=== PATIENT | female | born 1960 | race Hispanic/Latino ===

== ENCOUNTER 2017-09-18 12:52 | Outpatient (CLI) | payer OTHER ==
--- NOTE | 2017-09-18 15:05 | MRI ---
LUMBAR SPINE MRI WITHOUT CONTRAST: History: Lumbar radiculopathy, low back pain radiating down the left leg. Patient lifted a heavy obje ct in August 2017 which triggered the pain. Comparison: None. Technique: Lumbar spine MRI is performed without intravenous gadolinium administration. Multisequenti al, multiplanar imaging is performed. FINDINGS: There is appropriate T1 marrow signal intensity of the lumbar vertebrae. Lumbar spine vertebral body height is maintained. There is no fracture. No significant STIR hyperintensity to suggest vertebral b toby edema or ligamentous injury. Appropriate signal intensity of the psoas muscles and visualized retroperitoneal structures. Conus medullaris terminates at the mid L1 level. The overall AP diameter of the central spinal canal is decreased due to congenitally foreshortened pe dicles. T12-L1: Adequate disc hydration. No significant central canal stenosis or foraminal narrowing. L1-2: Adequate disc hydration. No significant disc abnormality. Mild ligamentum flavum thickening as well as facet hypertrophy. No significant spinal canal stenosis. Mild bilateral neural foraminal narr owing. L2-3: Desiccation with mild loss of disc space height. There is a broad based anterior as well as bro ad based posterior disc bulge. Ligamentum flavum thickening and facet hypertrophy are present. There is mild stenosis of the thecal sac. Neural foramina are patent bilaterally. L3-4: Disc desiccation without significant loss of disc space height. Generalized disc bulge with a l eft paracentral component is noted. There is a small inferior disc extrusion in the left subarticular zone. Ligamentous flavum thickening and facet hypertrophy are identified. There is moderate central canal stenosis. Moderate bilateral foraminal narrowing. L4-5: Adequate disc hydration. No significant disc abnormality. There is ligamentum flavum thickening and facet hypertrophy that results in mild central canal stenosis. There is narrowing of both subar ticular zones. There is disc material and posterior facet hypertrophy. Partial obscuration of bilater al traversing L5 nerve root. Moderate bilateral foraminal narrowing. L5-S1: Adequate disc hydration. No significant frontal canal stenosis. Neural foramina are patent. IMPRESSION: Degenerative changes of the lumbar spine as detailed above. POS: [facility]
== END 2017-09-18 12:53 | disposition home or self-care (01) ==
LOC: TBSIIMAG 12:52
PROVIDERS: ATTEND Neurological Surgery
DX: M47.26 Other spondylosis with radiculopathy, lumbar region (principal)
CPT/HCPCS: 72148

== ENCOUNTER 2017-09-23 08:54 | Day surgery (SDC) | payer OTHER ==
[2017-09-23] MEDS ORDERED: CEFAZOLIN/Water 2 GM/20 ML SYRINGE ONE (10:47)
[2017-09-23 11:13] LABS: #Lymphocytes 1.9 thou/uL (1.20-3.40); #Monocytes 0.5 thou/uL (0.11-0.59); #Neutrophils 5.9 thou/uL (1.40-6.50); %Basophils 0.3 % (0.0-1.0); %Eosinophils 0.5 % (0.0-10.0); %Lymphocytes 22.6 % (21.0-51.0); %Monocytes 6.3 % (0.0-10.0); %Neutrophils 70.3 % (42.0-75.0); Hemoglobin 11.8 g/dL (12.0-16.0); Mean Corpuscular HGB CONC 32.8 g/dL (32.0-36.0); Mean Corpuscular Hemoglobin 27.1 pg (27.0-31.0); Mean Corpuscular Volume 82.5 fl (81.0-99.0); Mean Platelet Volume 8.5 fL (7.4-10.4); Platelet Count 283 thou/uL (130-400); RBC Distribution Width 13.2 % (11.5-14.5); Red Blood Cell (RBC) Count 4.35 mill/uL (4.20-5.40); White Blood Cell (WBC) Count 8.4 thou/uL (4.8-10.8)
[2017-09-23 11:32] LABS: Anion Gap 15 mmol/L (10-20); BUN (Urea Nitrogen) 15 mg/dL (9.8-20.1); Calc. Creatinine Clearance 101 mL/min (70-130); Calcium 9.8 mg/dL (7.8-10.44); Carbon Dioxide 25 mmol/L (22-29); Chloride 102 mmol/L (98-107); Estimated GFR-MDRD 80; Glucose 94 mg/dL (70-105); Potassium 3.8 mmol/L (3.5-5.1); Sodium 138 mmol/L (136-145)
[2017-09-23] MEDS ORDERED: Ondansetron HCl/PF 4 MG/2 ML Vial ONE (12:20)
[2017-09-23] MEDS ORDERED: Glycopyrrolate 0.2 MG/ML 5 ML SYRINGE ONE (12:20)
[2017-09-23] MEDS ORDERED: Propofol 200 MG/20 ML VIAL ONE (12:20)
[2017-09-23] MEDS ORDERED: Lidocaine 1% PF 5 ML VIAL ONE (12:20)
[2017-09-23] MEDS ORDERED: Dexamethasone 20 MG/5 ML VIAL ONE (12:20)
[2017-09-23] MEDS ORDERED: ePHEDrine/0.9% NaCl/PF SYRINGE 50 mg/10 ml ONE (12:20)
[2017-09-23] MEDS ORDERED: HYDROmorphone 0.5 MG/0.5 ML SYRINGE ONE ×2 (13:33→17:02)
[2017-09-23] MEDS ORDERED: Fentanyl 100 MCG/2 ML VIAL ONE ×3 (13:33→15:28)
[2017-09-23] MEDS ORDERED: Promethazine HCl 25 MG/ML VIAL ONE ×2 (16:13→16:58)
--- NOTE | 2017-09-23 16:27 | OP ---
DATE OF PROCEDURE: 09/23/2017 SURGEON: Jan Sprague M.D. TRANSLATION DIRECTOR: Airam Vega PA-C PROCEDURE: L3-L4 laminectomy, left L3-L4 discectomy. PROCEDURE IN DETAIL: The patient was brought into the operating room, intubated. She was rolled in the prone position on gel-filled chest rolls. Incision made exposing L3 and L4 bilaterally and our l evel was confirmed by x-ray. We performed complete L4 and inferior L3 laminectomies, completely deco mpressing the central spinal canal and then turned our attention to the left L3-L4 region where an ad ditional lateral recess decompression was accomplished. The left L3-L4 disk was exposed, incised and debrided. A lateral component of disk was removed as well as lateral recess component. A complete decompression of the neural elements was achieved. The wound was extensively irrigated, immaculate h emostasis was secured. Vancomycin powder was applied and the wound was closed in anatomic layers.
[2017-09-23] MEDS ORDERED: HYDROcodone/Acetaminophen 5/325 mg Tablet ONE (16:50)
[2017-09-23] MEDS ORDERED: tiZANidine HCl 4 MG TAB ONE (16:50)
[2017-09-23 21:25] VITALS: BMI 28.6
[2017-09-23] MEDS ORDERED: HYDROcodone/Acetaminophen 10/325 mg Tablet PO PRN ×2 (22:08)
[2017-09-23] MEDS ORDERED: Milk Of Magnesia 30 ML UDCUP PO PRN (22:08)
[2017-09-23] MEDS ORDERED: Promethazine HCl 12.5 MG SUPP PR PRN (22:08)
[2017-09-23] MEDS ORDERED: traMADol HCl 50 MG TAB PO PRN ×2 (22:08)
[2017-09-23] MEDS ORDERED: Ondansetron HCl/PF 4 MG/2 ML Vial IM PRN (22:08)
[2017-09-23] MEDS ORDERED: Mag-Al 1200 mg/1200 mg/30 ML UDCUP PO PRN (22:08)
[2017-09-23] MEDS ORDERED: Sodium Chloride 0.9% 1,000 ML IV SCH (22:08)
[2017-09-23] MEDS ORDERED: Promethazine 25 MG TAB PO PRN (22:08)
[2017-09-23] MEDS ORDERED: Promethazine HCl 25 MG/ML VIAL IM PRN (22:08)
[2017-09-23] MEDS ORDERED: diphenhydrAMINE 25 MG CAP PO PRN (22:08)
[2017-09-23] MEDS ORDERED: Morphine 4 MG/ML Carpuject SLOW IVP PRN (22:08)
[2017-09-23] MEDS ORDERED: diphenhydrAMINE 50 MG/ML VIAL IVP PRN (22:08)
[2017-09-23] MEDS ORDERED: Morphine 5 MG/ML SYRINGE SLOW IVP PRN ×2 (22:14)
[2017-09-24] MEDS: tiZANidine HCl 4 MG TAB PO PRN ×2 (01:21→08:09)
[2017-09-24 08:26] VITALS: BP 112/68; TEMP 98
== END 2017-09-24 10:45 | disposition home or self-care (01) ==
LOC: SDC 08:54 → T4-A 21:21 → UNDOADMOB 21:21 → T4-A 21:21 → SDC 09-24 10:45 → UNDODISOB 09-24 10:45
PROVIDERS: ATTEND Neurological Surgery
PROC: 0ST20ZZ Resection of Lumbar Vertebral Disc, Open Approach (ICD-10-PCS; principal; 2017-09-24)
PROC: 01NB0ZZ Release Lumbar Nerve, Open Approach (ICD-10-PCS; principal; 2017-09-24)
DX: M48.061 Spinal stenosis, lumbar region without neurogenic claudication (principal); M54.16 Radiculopathy, lumbar region; Z79.899 Other long term (current) drug therapy; Z90.710 Acquired absence of both cervix and uterus; Z98.84 Bariatric surgery status; Z98.890 Other specified postprocedural states
CPT/HCPCS: 36415; 76001; 80048; 85025; 93005; 93010; 96374; 96375; J1100; J1170; J2001; J2270; J2405; J2550; J2704; J3010; J3370

== ENCOUNTER 2017-09-27 13:46 | Emergency (ER) | payer OTHER ==
[2017-09-27] MEDS ORDERED: Fentanyl 100 MCG/2 ML VIAL ONE (14:26)
[2017-09-27] MEDS ORDERED: Ketorolac Tromethamine 30 MG/ML VIAL ONE (17:28)
[2017-09-27] MEDS ORDERED: diphenhydrAMINE 50 MG/ML VIAL ONE (17:28)
[2017-09-27] MEDS ORDERED: Acetaminophen 500 MG TAB ONE (17:28)
[2017-09-27] MEDS ORDERED: Metoclopramide HCl 10 MG/2 ML VIAL ONE (17:28)
--- NOTE | 2017-09-27 17:45 | CON ---
ER CONSULTATION NOTE DATE OF CONSULTATION: 09/27/2017 HISTORY OF PRESENT ILLNESS: Ms. Ordoñez is a 56-year-old woman who is now postop day #4 following a zachery mbar laminectomy and diskectomy with Dr. Sprague on Saturday this week. She presents to the Emergency Department via transfer from [place] for severe headache that began yesterday morning and has pers isted through today. She does have a history of migraines and tried prescription abortive medication s for this purpose and was unsuccessful in treating it at bedside. Initially, she had her daughter a nd corroborates the story that her headaches seem to be unaffected by position, which to me e liminates the possibility of spinal fluid headache; however, when I go back in and reassess her after a few minutes, she then changes her stories some stating that she cannot sit up and it hurts her hea d more to sit up and when she lays down, it still hurts, but it does not hurt as bad. I do not know if this necessarily qualifies as a definitive spinal fluid headache or not, but based off of CT scan and incision inspection, I do not believe that this is infectious in process by any means. She has a normal white count. On exam, she has good motor strength in the bilateral lower extremities. She i s able to transition and transfer in the bed and roll on her side with ease. Her incision, she has s ome mild ecchymosis around the incision site, which is to be expected after this type of surgery, par ticularly with in this time frame. There is very mild bloody drainage from superior to the incision that has left a small spot on the bandage that placed, drainage from the incision, and they stated th at this first day postoperatively, on Saturday, she did have a fair amount of serosanguineous drainage from the incision, which I believe is very typical for this and it has tapered off profoundly since that time and she now has just left with some mild bloody drainage from time to time. Treatment in [facility] is focused on fluids. She did get a back to vancomycin which again, I think we can stop. I do not believe that she is toxic or that the CT scan of the lumbar spine represented abscess as opposed to just normal postoperative changes this early out from a lumbar laminectomy. Oswaldo alcantar does have some mild photophobia as well and has very mild signs of potential meningismus, which she feels like is abnormal for her. She is able to touch her chin to her chest. She does feels "tensio n" in the base of her neck. This certainly could just be related to muscle tension from her headache . From a neurosurgical perspective, I do not believe that this is related to her surgery, but it is hard to say that it is not given the possibility of even a small spinal fluid leak, though there was no intraoperative dural tear noted in the surgery note from Saturday. At the moment, we will treat thi s as possible refractory migraine. If all efforts continue to fail, then we will plan to place her o n observation status upstairs and start to treat this like a possible low pressure spinal fluid heada danika, meaning keeping her head of bed flat at all times on bed rest with high flow normal saline. I dedra brooks explained to them the possibilities of additional treatments for dural tear if we reach a working diagnosis of that, which included potential placement of lumbar drain or blood patch. They are unde rstanding of this, but first we will proceed with treatment of potential migraine and go from there.
[2017-09-27] MEDS ORDERED: methylPREDNISolone Sod Succ/PF 125 MG/2 ML VIAL ONE (18:39)
[2017-09-27] MEDS ORDERED: Magnesium Sulfate 2 GM/100 ML BAG ONE (18:39)
[2017-09-27] MEDS ORDERED: Bisacodyl 10 MG SUPP PR PRN (19:39)
[2017-09-27] MEDS ORDERED: diphenhydrAMINE 50 MG/ML VIAL IVP PRN (19:39)
[2017-09-27] MEDS ORDERED: Ondansetron PF 4 MG/2 ML Vial IVP PRN (19:39)
[2017-09-27] MEDS ORDERED: Cyclobenzaprine 10 MG TAB PO PRN (19:39)
[2017-09-27] MEDS ORDERED: Sodium Chloride 0.9% 1,000 ML IV SCH (19:45)
[2017-09-27] MEDS ORDERED: Fioricet 325/50/40 mg Tablet PO PRN (19:47)
== END 2017-09-27 20:10 | disposition home or self-care (01) ==
LOC: ERS 13:46
DX: T81.4XXA Infection following a procedure, initial encounter (principal); R51 Headache
CPT/HCPCS: 96361; 96365; 96367; 96375; J1200; J1885; J2765; J2930; J3010; J3370; J3475

== ENCOUNTER 2018-06-02 14:17 | Outpatient (CLI) | payer OTHER ==
--- NOTE | 2018-06-02 18:06 | MRI ---
MRI RIGHT SHOULDER WITHOUT CONTRAST: Date: 06/02/18 HISTORY: Rotator cuff tear. COMPARISON: Shoulder radiographs dated 01/29/17. FINDINGS: Biceps Tendon: The extra-articular biceps tendon is normal. The intraarticular biceps tendon has interstitial tearin g and delamination extending to the biceps labral anchor. Labrum: Superior labral tear anterior to posterior to the biceps tendon with extension to the intraarticular tendon. Rotator Cuff: There is high grade undersurface tearing of the posterior 1/2 of the supraspinatus tendon, 50-75% und ersurface partial tearing, with interstitial delamination extending to the infraspinatus tendon. Subs capularis is intact. There is a bursal surface tear of the anteriormost fibers of the infraspinatus t endon measuring 2.0 mm in AP dimension and is nearly full thickness. Bones: Moderate degenerative changes acromioclavicular joint with hypertrophic facet changes. Soft Tissues: Large subacromial/subdeltoid bursa effusion. Cartilage: No full thickness cartilage defect. Muscles: Muscle bulk is normal. IMPRESSION: 1. Extensive superior labral tear extending to the biceps labral anchor, as well as the intraarticul ar biceps tendon. 2. Focal full thickness perforation of the anterior 2.0 mm of the infraspinatus tendon. 3. High grade 50-75% undersurface partial tearing of the posterior 1/2 of supraspinatus tendon with interstitial delamination extending along the infraspinatus tendon. 4. Mild lateral downsloping of the acromion narrowing the subacromial space to approximately 4.0 mm. POS: [facility]
== END 2018-06-02 14:18 | disposition home or self-care (01) ==
LOC: SCSMRI 14:17
PROVIDERS: ATTEND Orthopaedic Surgery
DX: M75.101 Unspecified rotator cuff tear or rupture of right shoulder, not specified as traumatic (principal); S43.401A Unspecified sprain of right shoulder joint, initial encounter

== ENCOUNTER 2018-07-11 06:22 | Day surgery (SDC) | payer OTHER ==
[2018-07-10 11:37] VITALS: BMI 29.2
[2018-07-11] MEDS ORDERED: Bupivacaine/Epinephrine 0.25% 30 ML VIAL ONE (06:36)
[2018-07-11] MEDS ORDERED: Ondansetron PF 4 MG/2 ML Vial ONE ×2 (06:45→15:50)
[2018-07-11] MEDS ORDERED: Scopolamine 1.5 mg/72 hour Patch ONE (06:45)
[2018-07-11] MEDS ORDERED: Midazolam HCl 2 mg/2 ml Vial ONE (06:47)
[2018-07-11] MEDS ORDERED: Lidocaine 1% (PF) 30 ML VIAL ONE (06:47)
[2018-07-11] MEDS ORDERED: Fentanyl 100 MCG/2 ML VIAL ONE ×5 (06:47→10:05)
[2018-07-11 07:11] LABS: #Eosinphils 0.1 thou/uL (0.0-0.7); #Lymphocytes 1.8 thou/uL (1.20-3.40); #Monocytes 0.5 thou/uL (0.11-0.59); #Neutrophils 3.5 thou/uL (1.40-6.50); %Basophils 0.3 % (0.0-1.0); %Eosinophils 2.2 % (0.0-10.0); %Lymphocytes 30.4 % (21.0-51.0); %Monocytes 8.4 % (0.0-10.0); %Neutrophils 58.7 % (42.0-75.0); Hemoglobin 10.1 g/dL (12.0-16.0); Mean Corpuscular Hemoglobin 25.9 pg (27.0-31.0); Mean Corpuscular Volume 78.6 fL (78.0-98.0); Mean Platelet Volume 9.1 fL (7.4-10.4); Platelet Count 265 thou/uL (130-400); RBC Distribution Width 12.7 % (11.5-14.5); Red Blood Cell (RBC) Count 3.89 mill/uL (4.20-5.40)
[2018-07-11] MEDS ORDERED: CEFAZOLIN 2 GM/50 ML BAG ONE ×2 (07:13→07:22)
[2018-07-11 07:29] LABS: Anion Gap 9 mmol/L (10-20); BUN (Urea Nitrogen) 15 mg/dL (9.8-20.1); Calc. Creatinine Clearance 101 mL/min (70-130); Calcium 9.3 mg/dL (7.8-10.44); Carbon Dioxide 28 mmol/L (22-29); Chloride 107 mmol/L (98-107); Estimated GFR-MDRD 79; Glucose 79 mg/dL (70-105); Potassium 4.1 mmol/L (3.5-5.1); Sodium 140 mmol/L (136-145)
[2018-07-11] MEDS ORDERED: traMADol HCl 50 MG TAB PO PRN ×2 (07:33)
[2018-07-11] MEDS ORDERED: Ropivacaine 0.2% 550 ML 550 ML NERVE BLCK SCH (07:33)
[2018-07-11] MEDS ORDERED: Ondansetron PF 4 MG/2 ML Vial IVP PRN (07:33)
[2018-07-11] MEDS ORDERED: Zolpidem Tartrate 5 MG TAB PO PRN (07:33)
[2018-07-11] MEDS ORDERED: Ketorolac Tromethamine 30 MG/ML VIAL IVP PRN (07:33)
[2018-07-11] MEDS ORDERED: Promethazine HCl 25 MG/ML VIAL IM PRN (07:33)
[2018-07-11] MEDS ORDERED: HYDROcodone/Acetaminophen 10/325 mg Tablet PO PRN ×2 (07:33)
[2018-07-11] MEDS ORDERED: Fentanyl 100 MCG/2 ML VIAL IV PRN (07:34)
[2018-07-11] MEDS ORDERED: Ketorolac Tromethamine 30 MG/ML VIAL ONE (08:58)
[2018-07-11] MEDS ORDERED: Ropivacaine 0.5% HCl/PF (150 MG/30 ML VIAL) ONE (10:59)
[2018-07-11] MEDS ORDERED: Ropivacaine 0.2% HCl/PF (40 MG/20 ML VIAL) ONE (10:59)
--- NOTE | 2018-07-11 13:30 | OP ---
DATE OF PROCEDURE: 07/11/2018 PREOPERATIVE DIAGNOSES: Right shoulder impingement, rotator cuff tear, labral tear, biceps tear and instability. POSTOPERATIVE DIAGNOSES: Right shoulder impingement, rotator cuff tear, labral tear, biceps tear and instability. PROCEDURES PERFORMED: 1. Right shoulder arthroscopy with arthroscopic subacromial decompression. 2. Arthroscopic rotator cuff repair. 3. Arthroscopic biceps tenotomy. 4. Debridement and shaving of degenerative labral tear. RACEBOOK WRITER: None. ESTIMATED BLOOD LOSS: Minimal. COMPLICATIONS: None. ANESTHESIA: The patient had general anesthetic as well as a local block. DISPOSITION: She did go to the recovery room in stable condition. INDICATIONS: This 57-year-old female comes in complaining of superintendent terminal pain and discomfort in the shoulder, but no significant trauma. At this time, she elected to have surgery. DESCRIPTION OF PROCEDURE: After all appropriate consent forms were explained and signed, she was taken back to the operating room. At this time, she was given general anesthetic. Once the level of anesthesia was appropriate, she was rolled to the left lateral decubitus position with all bony prominences well-padded. An axillary roll was placed underneath the left axilla and a gutierres bag was inflated to hold her in this position. All bony prominences were well padded. The arm was then taken through full range of motion and suspended with 12 pounds in standard arthroscopic fashion. The right shoulder and upper extremity were then prepped and draped in standard surgical fashion. Bony anatomical landmarks were then drawn out. Subacromial space was infiltrated with Marcaine with epinephrine. At this time , posterior portal was established. Scope was placed into the shoulder joint. Anterior working portal was then made using a needle localization technique. Diagnostic arthroscopy commenced in the notch. Tremendous amount of frayed tissue was visible. Once we got the shaver in and shaved some of this down, we were able to visualize what was going on. There was a small full thickness tear in the beginning of supraspinatus and then as this went posteriorly, a small partial thickness tear was noted. Again, this was all debrided back to stable tissue. Labrum had a significant tearing noted from the superior labrum and biceps anchor all the way posteriorly. This was all debrided back to stable tissue. There was small tear in the leading edge of subscapularis, leading to instability of the biceps tendon and at this time, per discussion in the clinic, a biceps tenotomy was performed using the SERFAS energy probe. The cut biceps did not exit from the shoulder joint. At this point, we were then able to visualize fully, the remaining glenohumeral joint. The articular surfaces of the humeral head and glenoid were in excellent condition. No loose bodies were noted and at this time, scope was removed and repositioned in subacromial space. Lateral working portal was made. Bursa was removed and small decompression was performed using SERFAS energy and the shaver. At this time, we were then able to fully evaluate the cuff. A small full thickness tear was noted and at this time, the edges were smoothed up with a shaver. All soft tissue was removed off the tuberosity. A second lateral portal was made. A PassPort cannula was placed through this and at this time, we passed a FiberTape in inverted mattress fashion and then punched and placed 4.75 SwiveLock for fixation. This gave us an excellent repair of the small cuff tear and at this time, the scope was removed. The shoulder was drained, and portals were closed with simple nylon stitch. A bulky sterile dressing was applied. She was awakened and taken to recovery room in stable condition. All counts were correct at the end of the case and she did receive preoperative IV antibiotics. Job ID: [id number] [facility]
[2018-07-11] MEDS ORDERED: Lidocaine 1% PF 5 ML VIAL ONE (15:50)
[2018-07-11] MEDS ORDERED: Glycopyrrolate 0.2 MG/ML 5 ML SYRINGE ONE (15:50)
[2018-07-11] MEDS ORDERED: PROPOFOL 200 MG/20 ML VIAL ONE (15:50)
--- NOTE | 2018-07-11 22:41 | EKG ---
Test Reason : PROEP Blood Pressure : / mmHG Vent. Rate : 058 BPM Atrial Rate : 058 BPM P-R Int : 210 ms QRS Dur : 088 ms QT Int : 430 ms P-R-T Axes : 036 075 060 degrees QTc Int : 422 ms Sinus bradycardia with 1st degree A-V block Nonspecific ST and T wave abnormality Abnormal ECG When compared with ECG of 23-SEP-2017 11:17, Nonspecific T wave abnormality now evident in Anterior leads Confirmed by CORNELIO CARO, SRuiz ([id number]) on 07/11/2018 10:41:35 PM Referred By: IERO Confirmed By:DR. June GRIMES MD
== END 2018-07-11 12:15 | disposition home or self-care (01) ==
LOC: SDC 06:22
PROVIDERS: ATTEND Orthopaedic Surgery
PROC: 0RHJ44Z Insertion of Internal Fixation Device into Right Shoulder Joint, Percutaneous Endoscopic Approach (ICD-10-PCS; principal; 2018-07-11)
PROC: 0RNJ4ZZ Release Right Shoulder Joint, Percutaneous Endoscopic Approach (ICD-10-PCS; principal; 2018-07-11)
PROC: 0LQ14ZZ Repair Right Shoulder Tendon, Percutaneous Endoscopic Approach (ICD-10-PCS; principal; 2018-07-11)
DX: M75.121 Complete rotator cuff tear or rupture of right shoulder, not specified as traumatic (principal); M25.311 Other instability, right shoulder; S43.401A Unspecified sprain of right shoulder joint, initial encounter
CPT/HCPCS: 80048; 85025; 93005; 93010; 96374; A4306; C1713; J1885; J2001; J2250; J2405; J2704; J2795; J3010

== ENCOUNTER 2019-06-30 15:48 | Outpatient (CLI) | payer OTHER ==
--- NOTE | 2019-06-30 16:20 | RAD ---
Exam: 4 views cervical spine HISTORY: Cervical spondylosis, with myelopathy. Follow-up neck surgery FINDINGS: On the open-mouth projection, lateral masses of C1 and C2 articulate appropriately. Limited evaluation of the odontoid process In the AP projection, no malalignment There is an anterior fusion plate with transvertebral body screws at C6-C7. Disc prosthesis at C6-C7 . With regards to the site of fusion no evidence of periarticular lucency Moderate degenerative disc disease at the C5-C6. Grade 1 anterolisthesis of C3 upon C4. No prevertebral soft tissue swelling. Vertebral body heights are maintained. No fracture IMPRESSION: Uncomplicated cervical fusion hardware Transcribed Date/Time: 06/30/2019 4:26 PM
== END 2019-06-30 15:49 | disposition home or self-care (01) ==
LOC: TBSIIMAG 15:48
PROVIDERS: ATTEND Neurological Surgery
DX: M47.12 Other spondylosis with myelopathy, cervical region (principal); Z98.1 Arthrodesis status
CPT/HCPCS: 72040

== ENCOUNTER 2020-11-24 12:42 | Outpatient (CLI) | payer OTHER | END 2020-11-24 12:43 | disposition home or self-care (01) | LOC: TBSIIMAG 12:42 | PROVIDERS: ATTEND Neurological Surgery | DX: M54.12 Radiculopathy, cervical region (principal); Z98.1 Arthrodesis status | CPT/HCPCS: 72040 ==

== ENCOUNTER 2021-06-29 12:27 | Emergency (ER) | payer OTHER ==
[2021-06-29 13:16] LABS: #Lymphocytes 1.2 thou/uL (1.20-3.40); #Monocytes 0.5 thou/uL (0.11-0.59); #Neutrophils 5.3 thou/uL (1.40-6.50); %Basophils 0.6 % (0.0-1.0); %Eosinophils 0.3 % (0.0-10.0); %Lymphocytes 16.4 % (21.0-51.0); %Monocytes 7.6 % (0.0-10.0); %Neutrophils 75.1 % (42.0-75.0); Mean Corpuscular HGB CONC 33.6 g/dL (32.0-36.0); Mean Corpuscular Hemoglobin 28.6 pg (27.0-31.0); Mean Corpuscular Volume 85.2 fL (78.0-98.0); Mean Platelet Volume 7.9 fL (7.4-10.4); Platelet Count 257 thou/uL (130-400); RBC Distribution Width 12.6 % (11.5-14.5); Red Blood Cell (RBC) Count 4.21 mill/uL (4.20-5.40); White Blood Cell (WBC) Count 7.1 thou/uL (4.8-10.8)
[2021-06-29 13:36] LABS: ALT (SGPT) 12 U/L (8-55); AST (SGOT) 17 U/L (5-34); Albumin 4.1 g/dL (3.5-5.0); Alkaline Phosphatase 152 U/L (40-110); Anion Gap 13 mmol/L (10-20); BUN (Urea Nitrogen) 11 mg/dL (9.8-20.1); Bilirubin, Total 0.4 mg/dL (0.2-1.2); Calc. Creatinine Clearance 0 mL/min (70-130); Calcium 9.3 mg/dL (7.8-10.44); Carbon Dioxide 26 mmol/L (22-29); Chloride 106 mmol/L (98-107); Globulin 2.7 g/dL (2.4-3.5); Glucose 93 mg/dL (70-105); Potassium 4.1 mmol/L (3.5-5.1); Protein, Total 6.8 g/dL (6.0-8.3); Sodium 141 mmol/L (136-145)
[2021-06-29] MEDS ORDERED: Metoclopramide HCl 10 MG/2 ML VIAL ONE (13:46)
[2021-06-29] MEDS ORDERED: diphenhydrAMINE 50 MG/ML VIAL ONE (13:46)
== END 2021-06-29 17:02 | disposition home or self-care (01) ==
LOC: ERS 12:27
DX: R07.89 Other chest pain (principal); R55 Syncope and collapse; G44.209 Tension-type headache, unspecified, not intractable
CPT/HCPCS: 36415; 70450; 71045; 80053; 84484; 85025; 93005; 96365; 96375; J1200; J2765

== ENCOUNTER 2025-07-29 10:50 | Outpatient (CLI) | payer OTHER ==
[2025-07-29 12:07] LABS: #Basophils 0.04 10x3/uL (0.0-0.2); #Eosinophils 0.13 10x3/uL (0.0-0.7); #Monocytes 0.41 10x3/uL (0.11-0.59); #Neutrophils 3.46 10x3/uL (1.40-6.50); %Basophils 0.7 % (0.0-1.0); %Eosinophils 2.3 % (0.0-10.0); %Lymphocytes 29.3 % (21.0-51.0); %Monocytes 7.2 % (0.0-10.0); %Neutrophils 60.3 % (42.0-75.0); Hematocrit 35.8 % (36.0-47.0); Hemoglobin 11.4 g/dL (12.0-16.0); Mean Corpuscular Hemoglobin 26.6 pg (27.0-31.0); Mean Corpuscular Volume 83.4 fL (78.0-98.0); Platelet Count 258 10x3/uL (130-400); Red Blood Cell (RBC) Count 4.29 mill/uL (4.20-5.40); White Blood Cell (WBC) Count 5.73 10x3/uL (4.8-10.8)
[2025-07-29 12:15] LABS: Anion Gap 11 mmol/L (10-20); BUN (Urea Nitrogen) 16 mg/dL (9.8-20.1); Calc. Creatinine Clearance 0 mL/min (70-130); Calcium 9.1 mg/dL (7.8-10.44); Carbon Dioxide 25 mmol/L (23-31); Chloride 109 mmol/L (98-107); Glucose 64 mg/dL (80-115); Potassium 4.0 mmol/L (3.5-5.1); Sodium 141 mmol/L (136-145)
== END 2025-07-29 10:51 | disposition home or self-care (01) ==
LOC: LABBT 10:50
PROVIDERS: ATTEND Orthopaedic Surgery
DX: Z01.818 Encounter for other preprocedural examination (principal); M24.541 Contracture, right hand
CPT/HCPCS: 71046; 80048; 85025; 93005; 93010